=== PATIENT | female | born 1980 | race Caucasian/White ===

== ENCOUNTER 2021-12-26 03:46 | Emergency (ER) | payer SELFPAY ==
[2021-12-26] MEDS ORDERED: Ketorolac 30 MG/ML SDV IM STA (03:54)
[2021-12-26] MEDS ORDERED: Cephalexin 500 MG Cap PO ONE (04:22)
== END 2021-12-26 04:31 | disposition home or self-care (01) ==
LOC: MW.ED 03:46
DX: M70.21 Olecranon bursitis, right elbow (principal); Y92.69 Other specified industrial and construction area as the place of occurrence of the external cause
CPT/HCPCS: 73080; 96372; 99283; A9270; J1885

== ENCOUNTER 2022-04-17 09:36 | Emergency (ER) | payer SELFPAY | END 2022-04-17 11:56 | disposition left against medical advice (07) | LOC: MW.ED 09:36 | DX: S69.91XA Unspecified injury of right wrist, hand and finger(s), initial encounter (principal); W00.0XXA Fall on same level due to ice and snow, initial encounter | CPT/HCPCS: 73110-26-RT; 73110-RT; 73130-26-RT; 73130-RT; 99283 ==

== ENCOUNTER 2022-12-30 11:11 | Emergency (ER) | payer SELFPAY ==
[2022-12-30 11:47] LABS: BASOPHILS PERCENT AUTO 0.2 % (0.0-1.5); EOSINOPHILS ABSOLUTE AUTO 0.2 K/uL (0.0-0.7); EOSINOPHILS PERCENT AUTO 2.7 % (0.0-7.0); HEMATOCRIT 41.6 % (36.0-46.0); LYMPHOCYTES ABSOLUTE AUTO 1.4 K/uL (0.6-2.4); LYMPHOCYTES PERCENT AUTO 25.3 % (16.0-40.0); MEAN CORPUSCULAR HEMOGLOBIN 29.5 pg (27.0-32.0); MEAN CORPUSCULAR HGB CONC 33.7 g/dL (31.0-37.0); MEAN CORPUSCULAR VOLUME 87.8 fL (80.0-98.0); MONOCYTES ABSOLUTE AUTO 0.5 K/uL (0.0-0.8); MONOCYTES PERCENT AUTO 8.4 % (0.0-15.0); NEUTROPHILS ABSOLUTE AUTO 3.6 K/uL (1.4-5.7); NEUTROPHILS PERCENT AUTO 63.4 % (48.0-80.0); NRBC ABSOLUTE 0 K/uL; PLATELET COUNT,PLT 356 K/uL (150-400); RED BLOOD CELL COUNT 4.74 M/uL (4.30-5.90); WHITE BLOOD CELL COUNT,WBC 5.62 K/uL (4.0-11.0)
[2022-12-30 12:18] LABS: A/G RATIO 0.9 (0.9-1.6); ALANINE AMINOTRANSFERASE,ALT 1308 IU/L (14-63); ALBUMIN 3.4 g/dL (3.4-5.0); ALKALINE PHOSPHATASE 153 U/L (46-116); ASPARTATE AMNIOTRANSFERASE,AST 1450 IU/L (15-37); BILIRUBIN TOTAL 1.2 mg/dL (0.2-1.0); BLOOD UREA NITROGEN,BUN 10 mg/dL (7.0-18.0); CALCIUM 8.2 mg/dL (8.5-10.1); CARBON DIOXIDE,CO2 25.6 mmol/L (21.0-32.0); CHLORIDE,CL 105 mmol/L (98-107); CREATININE 0.9 mg/dL (0.6-1.0); EST CRCL DRUG DOSING (CG) 73.27 mL/min; ESTIMATED GFR 82 mL/min (>60); GLUCOSE RANDOM 113 mg/dL (74-106); PROTEIN TOTAL,TP 7.2 g/dL (6.4-8.2); SODIUM,NA 138 mmol/L (136-145)
[2022-12-30] MEDS ORDERED: Aluminum Hydroxide/Magnesium Hydroxide/Simethicone XS Susp 30 ML Cup PO ONE (12:32)
[2022-12-30 12:58] LABS: INR 1.03 (0.86-1.11)
[2022-12-30 12:59] LABS: ACETAMINOPHEN <2.0 ug/mL; LIPASE 49 U/L (16-77)
[2022-12-30] MEDS ORDERED: WATER IV STA ×2 (13:06)
[2022-12-30] MEDS ORDERED: DEXTROSE 5% IV STA ×2 (13:06)
[2022-12-30] MEDS ORDERED: ACETYLCYSTEINE IV STA ×2 (13:06)
[2022-12-30] MEDS ORDERED: DEXTROSE 5% IV ONE ×2 (13:09)
[2022-12-30] MEDS ORDERED: WATER IV ONE ×2 (13:09)
[2022-12-30] MEDS ORDERED: ACETYLCYSTEINE IV ONE ×2 (13:09)
[2022-12-30] MEDS ORDERED: Sodium Chloride 0.9% 1,000 ML IV ONE (13:13)
== END 2022-12-30 14:47 ==
LOC: MW.ED 11:11
DX: R07.2 Precordial pain (principal); R07.89 Other chest pain; R79.89 Other specified abnormal findings of blood chemistry
CPT/HCPCS: 36415; 71046; 76705; 80053; 80143; 83690; 84484; 85025; 85610; 93005; 96360; 99285; A9270; J7030; 93010; 99283

== ENCOUNTER 2023-02-19 14:34 | Emergency (ER) | payer SELFPAY | END 2023-02-19 15:28 | disposition home or self-care (01) | LOC: MW.ED 14:34 | DX: J32.9 Chronic sinusitis, unspecified (principal) | CPT/HCPCS: 99283 ==